=== PATIENT | male | born 1980 | race Caucasian/White ===

== ENCOUNTER 2018-07-18 13:48 | Emergency (ER) | payer SELFPAY ==
[2018-07-18] MEDS ORDERED: SODIUM CHLORIDE 0.9% 1000ML 1,000 ML IVS ONE (14:05)
--- NOTE | 2018-07-18 14:05 | ED.PDOC ---
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 Timing/Duration: 1-3 hours Severity: moderate Improving Factors: nothing Worsening Factors: other - not taking diabetic pills Associated Symptoms: denies symptoms Allergies/Adverse Reactions: Allergies Sulfa Antibiotics Allergy (Verified 07/18/18 14:05) Home Medications: Ambulatory Orders Metformin HCl [Glucophage] 1,000 mg PO BID #30 tab 07/18/18 Review of Systems - Review of Systems Constitutional: States: no symptoms reported EENTM: States: no symptoms reported Respiratory: States: no symptoms reported Cardiology: States: no symptoms reported Gastrointestinal/Abdominal: States: no symptoms reported Genitourinary: States: no symptoms reported Musculoskeletal: States: no symptoms reported Endocrine: States: see HPI Hematologic/Lymphatic: States: no symptoms reported Past Medical History (General) - Patient Medical History Hx Diabetes: Yes Surgical History: appendectomy Family Medical History - Family History Mother Living Status: Still Living Hx Family Diabetes: Yes - ,mom Physical Exam - Physical Exam General Appearance: Alert, Comfortable, No apparent distress Eye Exam: bilateral normal Ears, Nose, Throat: hearing grossly normal, normal ENT inspection, normal pharynx Neck: non-tender, full range of motion, supple, normal inspection Respiratory: lungs clear, normal breath sounds, no respiratory distress Cardiovascular/Chest: normal peripheral pulses, regular rate, rhythm, no murmur Peripheral Pulses: radial,right: 2+, radial,left: 2+ Gastrointestinal/Abdominal: non tender, soft, no organomegaly Extremity: no pedal edema, no calf tenderness Neurologic: alert, oriented x 3 Skin Exam: normal color, warm/dry Lymphatic: no adenopathy Progress - Progress Progress: 07/18/18 14:36 Vital Signs - 8 hr 07/18/18 14:05 Temperature 97.8 F Pulse Rate [ 93 H MONITOR] Respiratory 18 Rate Blood Pressure 145/104 [RA] O2 Sat by Pulse 98 Oximetry - Results/Orders Results/Orders: 07/18/18 14:05 IV Care:Saline Lock per Protoc QSHIFT Laboratory Results - last 24 hr 07/18/18 07/18/18 07/18/18 13:35 13:35 14:55 WBC 6.0 RBC 5.74 Hgb 16.2 Hct 48.1 MCV 83.9 MCH 28.3 MCHC 33.7 RDW 12.8 Plt Count 229 MPV 9.2 Absolute Neuts (auto) 3.80 Absolute Lymphs (auto) 1.60 Absolute Monos (auto) 0.50 Absolute Eos (auto) 0.00 Absolute Basos (auto) 0.00 Neutrophils % 64.0 Lymphocytes % 26.9 Monocytes % 7.7 Eosinophils % 0.7 L Basophils % 0.7 Sodium 130 L Potassium 4.6 Chloride 95 L Carbon Dioxide 24 Anion Gap 15.6 BUN 19 H Creatinine 1.06 BUN/Creatinine Ratio 17.9 POC Glucose Random Glucose 507 H* Serum Osmolality 286.7 Calcium 10.4 H Total Bilirubin 0.7 AST 22 ALT 28 Alkaline Phosphatase 62 Serum Total Protein 8.5 H Albumin 4.8 Globulin 3.7 H Albumin/Globulin Ratio 1.3 Urine Color Yellow Urine Appearance Clear Urine pH 5.0 Ur Specific [place] 1.010 Urine Protein Negative Urine Glucose (UA) 500 H Urine Ketones Negative Urine Blood Negative Urine Nitrite Negative Urine Bilirubin Negative Urine Urobilinogen 0.2 Ur Leukocyte Esterase Negative Urine RBC 0-1 Urine WBC 0 Ur Epithelial Cells 0 Amorphous Sediment Trace Urine Bacteria 0 07/18/18 07/18/18 15:48 16:36 WBC RBC Hgb Hct MCV MCH MCHC RDW Plt Count MPV Absolute Neuts (auto) Absolute Lymphs (auto) Absolute Monos (auto) Absolute Eos (auto) Absolute Basos (auto) Neutrophils % Lymphocytes % Monocytes % Eosinophils % Basophils % Sodium 134 L Potassium 4.0 Chloride 101 Carbon Dioxide 24 Anion Gap 13.0 BUN 16 Creatinine 0.85 BUN/Creatinine Ratio 18.8 POC Glucose 321 H Random Glucose 331 H D Serum Osmolality 282.3 Calcium 9.5 Total Bilirubin AST ALT Alkaline Phosphatase Serum Total Protein Albumin Globulin Albumin/Globulin Ratio Urine Color Urine Appearance Urine pH Ur Specific [place] Urine Protein Urine Glucose (UA) Urine Ketones Urine Blood Urine Nitrite Urine Bilirubin Urine Urobilinogen Ur Leukocyte Esterase Urine RBC Urine WBC Ur Epithelial Cells Amorphous Sediment Urine Bacteria Discuss all test results with patient and the importance of compliance with medication regimen and regular follow up with primary Md;Blood sugar on downward trend;Stated has appointment with his primary Md 23 July 2018 Departure - Departure Clinical Impression: Hyperglycemia due to type 2 diabetes mellitus Qualifiers: Diabetes mellitus care home insulin use: without manager long term care use Qualified Code(s): E11.65 - Type 2 diabetes mellitus with hyperglycemia Time of Disposition: 17:09 Disposition: Discharge to Home or Self Care Condition: Fair Departure Forms: ED Discharge - Pt. Copy, Patient Portal Self Enrollment Instructions: DI for Diabetes Type 2, Diabetes Diet , Diabetes and Diet Prescriptions: Metformin HCl [Glucophage] 1,000 mg PO BID #30 tab Home Medications: Ambulatory Orders Metformin HCl [Glucophage] 1,000 mg PO BID #30 tab 07/18/18 Additional Instructions: Follow up with primary Md in [place] 19 July 2018 for recheck;Return to ER as needed
[2018-07-18 14:09] VITALS: TEMP 97.8
[2018-07-18] MEDS ORDERED: INSULIN, REG.(HUMAN) 100 U/ML VIAL SUBCU ONE (14:29)
[2018-07-18] MEDS ORDERED: INSULIN, REG.(HUMAN) 100 U/ML VIAL IV ONE (14:30)
[2018-07-18 17:25] VITALS: BP 123/88; O2SAT 97
== END 2018-07-18 17:26 | disposition home or self-care (01) ==
LOC: ER 13:48
DX: E11.65 Type 2 diabetes mellitus with hyperglycemia (principal); Z79.84 Long term (current) use of oral hypoglycemic drugs; Z91.14 Patient's other noncompliance with medication regimen; Z88.2 Allergy status to sulfonamides
CPT/HCPCS: 36415; 36416; 80048; 80053; 81001; 82948; 85025; J7030